=== PATIENT | female | born 1960 | race Caucasian/White ===

== ENCOUNTER 2023-09-06 14:13 | Emergency (ER) | payer MEDICAID, SELFPAY ==
[2023-09-06 14:16] VITALS: BP 151/129; PULSE 85; RESP 16; TEMP 35.9; O2SAT 96; BMI 29.4
--- NOTE | 2023-09-06 14:29 | EDS_ITS ---
HPI HPI - Psych History of Present Illness Chief Complaint: Mental Health Detail of Chief Complaint: Depressed due to recent loss of her 2 months ago. Informant: patient Onset/Context/Timing Onset: Month(s) Context: Gradual Onset Conflict: Family (Loss of her 2 months ago.) Timing: Continuous Current Severity: Moderate Maximum Severity: Moderate Associated Symptoms Associated Symptoms - Psych: Positive for Depressed and Change in Eating Narrative Narrative: 63-year-old female history diabetes. has 22 months ago they been 29 years she went willingly admits she is depressed from that. Also her dog's illness made to put her dog down in the next several days. She was previously living in the [facility]. Is recently been hospitalized both at [facility] and a mental health facility 5 over the last 10 weeks. States that she has not made a suicide attempt except for 9 days she did not eat but is now eating again. Denies any prior psychiatric illness before the loss of her . She states she has had some falls recently and injured her left shoulder and left foot she has had prior left foot surgery. Prior similar symptoms: Yes Recent Illness/Hospitalization: Yes PFSH PFSH Medical History Anxiety Depression Dyslipidemia HTN (hypertension) Diabetes Allergy/AdvReac Type Severity Reaction Status Date / Time Penicillins Allergy Severe Anaphylaxis Verified 09/06/23 14:37 bee venom protein (honey Allergy Anaphylaxis Verified 09/06/23 14:37 bee) (bees) Social History Smoking Status: Current every day smoker tobacco type: cigarettes ROS ROS ED ROS Narrative Denies recent illness. Mild nausea. Review of Systems ROS Unobtainable: Denies due to encephalopathy Constitutional Constitutional ED: Denies chills or fever(s) Eyes Eyes: Denies blurry vision ENT ENT ED: Denies ear pain Cardiovascular Cardiovascular: Denies chest pain Respiratory/Chest Respiratory/Chest: Denies cough Gastrointestinal Gastrointestinal: Reports nausea; Denies abdominal pain, constipation, diarrhea, melena or vomiting Genitourinary Genitourinary ED: Denies dysuria or hematuria Musculoskeletal Musculoskeletal: Denies arthralgias or back pain Integumentary Denies abscess Neurologic Neurologic: Denies headache(s) Psychiatric Psychiatric: Reports depression and suicidal ideation; Denies anxiety Endocrine Endocrinology: Denies polydipsia, polyphagia or polyuria Hematologic/Lymphatic Hematologic/Lymphatic: Denies easy bleeding, easy bruising or lymphadenopathy Allergic/Immunologic Allergic/Immunologic ED: Denies mouth swelling, tongue swelling or urticaria EXAM Physical Exam Narrative Exam Narrative: Well-appearing 63-year-old female. Vital signs are stable afebrile. Initial blood pressure is elevated to be rechecked. H EENT exam tearful but otherwise no signs of trauma. Pupils round reactive light. Mytrex membranes. Neck nontender. Lungs clear to auscultation bilaterally. Heart regular rhythm rate about 80 no murmur. Chest wall and ribs nontender. Abdomen soft nontender. Moving all 4 extremities. Mild tenderness left shoulder no gross deformity. Normal range of motion. Left distal humerus, elbow, forearm wrist and hand nontender. Neurovascular intact. Right upper extremity unremarkable. Right lower extremity unremarkable. Left foot mild tenderness minimal swelling. Neurovascular intact. Left hip, knee and ankle are nontender. Neurologically she is awake alert no focal motor deficits. Emotionally she is tearful and upset but answering questions and following commands. Const Vital Signs: 09/06/23 14:16 Temperature 96.7 F L Temperature Source Temporal Pulse Rate 85 Respiratory Rate 16 Blood Pressure 151/129 H Blood Pressure Mean 136 Pulse Ox 96 Positive well nourished and well developed; Negative for cachectic, contractures or unkempt General Appearance ED: well developed and NAD; Negative for unkempt, cachectic, contractures or pallor Nutritional Appearance: Negative for cachectic HEENT Reports moist mucous membranes normocephalic and atraumatic; Negative for trauma or tenderness Eyes PERRL and EOMs intact bilaterally General Eye ED: Negative for pale conjunctiva or scleral icterus Neck no lymphadenopathy, supple and no JVD General: Negative for tenderness Resp normal respiratory effort and clear to auscultation bilaterally Effort and Inspection: Negative for retractions Auscultation: Negative for rales, rhonchi, wheezes or diminished lung sounds Cardio S1 normal heart sound, S2 normal heart sound and no murmurs Palpation: Negative for other Rate: regular rate Rhythm: regular rhythm GI non-tender, non-distended and no masses Inspection: Negative for abdominal distention Auscultation: normoactive bowel sounds Palpation: soft; Negative for tender, guarding or mass Back/Spine no CVA tenderness General Back: Negative for CVA tenderness Cervical Spine: Negative for cervical spine tenderness Thoracic Spine / Upper Back: Negative for thoracic spinal tenderness Lumbar Spine / Lower Back: Negative for lumbar spinal tenderness Coccyx: Negative for other Extremity normal to inspection General Extremety ED: Negative for edema or tenderness General Extremity: Negative for edema Neuro oriented x3 and CN's II-XII intact bilaterally Sensorium / Orientation: alert, oriented to person, oriented to place and oriented to time; Negative for orientation impaired, confused, lethargic or stuporous Motor Exam: strength 5/5 throughout Psych mental status grossly normal, thought process normal, cooperative, speech normal, activity/motor behavior normal and denies hallucinations; Negative for affect normal or denies suicidal ideation Appearance: grossly normal, appropriate and well kempt; Negative for unkempt, disheveled or intubated Attitude: calm, engaged, No paranoid, No withdrawn, No bizarre, No uncooperative, No evasive, No guarded, No belligerent, No agitated, No aggressive and hostile Activity / Motor Behavior: appropriate eye contact Speech: normal speech Mood & Affect: depressed, sad and tearful Thought Process: normal thought process Thought Content: normal thought content Attention / Concentration: attention grossly intact Memory / Cognition: memory grossly intact Insight: insight good Judgement: judgement good Skin General Skin Exam: Negative for jaundice or pallor Lesions: no lesions Rashes: no rashes Trauma: Negative for abrasion or laceration Wounds: Negative for amputation MDM MDM MDM Narrative Medical decision making narrative: 63-year-old female 2 months ago lost her . She has been in and out of hospital mental health institutions for about 5 weeks. Currently staying with a friend locally. Has had some falls recently complaining of left shoulder and foot pain which will be x-rayed. She will go through an ED mental health evaluation with screening labs and crisis evaluation. She is obviously depressed and may or may not be suicidal. Repeat exam patient is doing well at 3:50 PM. Resting comfortably. Crisis evaluated patient I spoke with the person around 5:30 PM. They do not feel comfortable sending the patient home. She did admit to them that she has had other significant psychiatric issues in the past and possibly prior suicide attempts. They are working on a transfer to a psychiatric facility. Patient is comfortable with the plan. History & Record Review Discussion w/independent historian: Patient Additional record(s) reviewed:: No prior records Lab Data Attestation: I reviewed the patient's lab results. Lab results narrative: CBC normal. White count of 7. H&H 13 and 41. Platelets 293. Electrolytes unremarkable gap 8. BUN and creatinine 25 and 0.6. Glucose 141. Alcohol level less than 3. Urine tox screen positive for ecstasy and cannabis. Labs: Laboratory Results - last 24 hr 09/06/23 09/06/23 14:49 16:05 WBC 7.9 RBC 4.56 Hgb 13.7 Hct 41.7 MCV 91.4 MCH 30.0 MCHC 32.9 RDW Std Deviation 53.1 H RDW Coeff of Ifeoma 15.8 H Plt Count 293 MPV 8.1 Immature Gran % (Auto) 0.400 Neut % (Auto) 77.6 H Lymph % (Auto) 13.2 L Harper % (Auto) 6.3 Eos % (Auto) 2.0 Baso % (Auto) 0.5 Absolute Neuts (auto) 6.1 Absolute Lymphs (auto) 1.04 Nucleated RBC % 0 Sodium 139 Potassium 3.8 Chloride 110 H Carbon Dioxide 21.0 Anion Gap 8 BUN 25 H Creatinine 0.67 Estim Creat Clear Calc 89.93 Est GFR (MDRD) Af Amer 114 Est GFR (MDRD) Non-Af 94 BUN/Creatinine Ratio 37.3 H Glucose 141 H Calcium 9.3 Urine Opiates Screen NEGATIVE Urine Methadone Screen NEGATIVE Ur Barbiturates Screen NEGATIVE Ur Phencyclidine Scrn NEGATIVE Ur Amphetamines Screen NEGATIVE MDMA (Ecstasy) Screen POSITIVE H U Benzodiazepines Scrn NEGATIVE Urine Cocaine Screen NEGATIVE U Cannabinoids Screen POSITIVE H Ur Drug Screen Comment Ethyl Alcohol < 3.0 Radiography Diagnostic Testing: Clinical Impression(s) from Imaging Studies Foot X-Ray 09/06/23 14:55 IMPRESSION: There are no acute findings of the foot. Electronically Signed: Basilio Fallon MD at 15:24 EDT , Shoulder X-Ray 09/06/23 14:55 IMPRESSION: There are no acute findings of the shoulder. Electronically Signed: Basilio Fallon MD at 15:33 EDT , Left foot x-ray, 3 views, interpreted by myself and the radiologist shows no acute abnormality. No fracture or dislocation. Osteopenia and chronic arthritic changes. Left shoulder x-ray interpreted by myself and radiologist 2 views shows no acute fracture. No dislocation. Chronic changes. Discharge Plan Triage Chief Complaint: Mental Health Other Complaint: Lower Extremity Injury ED Provider: Cristo Gonzalez Dx/Rx/DC Orders Clinical Impression: Fall, Contusion of left shoulder, Sprain of foot, left, Depression, History of diabetes mellitus, Suicidal thoughts Primary Care Provider: Care Physician,No Primary Referrals: Care Physician,No Primary [Primary Care Provider] - Print Language: Austrian
--- NOTE | 2023-09-06 14:31 | ED.RN ---
Per Dr Gonzalez no sitter needed.
--- NOTE | 2023-09-06 14:38 | ED.RN ---
PER , PT DOES NOT NEED A SITTER.
--- NOTE | 2023-09-06 14:55 | RAD_ITS ---
STUDY: XR Foot Min 3 Views CLINICAL: Female, 63 years old. fall TECHNIQUE: XR Foot Min 3 ViewsLEFT COMPARISON: None. FINDINGS: There is demineralization of the rear and midfoot bones. There is an enthesophyte involving the posterior superior calcaneus at the site of insertion of the Achilles tendon. Normal visualized subtalar, talonavicular, calcaneocuboid, tarsal and tarsometatarsal articulations. Plantar calcaneal anchor noted. There is demineralization of the metatarsi. There is degenerative arthrosis of the metatarsophalangeal joint of the hallux . Normal tibial and fibular sesamoid bones. Normal interphalangeal joint of the great toe. Normal phalanges of the great toe. Normal second through fifth metatarsophalangeal joints. Normal interphalangeal joints and phalanges of the lesser toes. The soft tissue structures are unremarkable. RAD/Foot min 3 Views IMPRESSION: There are no acute findings of the foot. Electronically Signed: Basilio Fallon MD at 15:24 EDT Reading Location ID and State: [facility] / [place] , Service support ,
--- NOTE | 2023-09-06 14:55 | RAD_ITS ---
STUDY: XR Shoulder Min 2 Views REASON FOR EXAM: Female, 63 years old. fall TECHNIQUE: XR Shoulder Min 2 Views LEFT COMPARISON: None. FINDINGS: There is severe degenerative arthrosis of the glenohumeral articulation. There is degenerative arthrosis of the acromioclavicular joint without inferior osseous spur formation. Normal acromion. Normal humeral head and visualized proximal humerus. The soft tissue structures are unremarkable. Normal visualized pulmonary apex. RAD/Shoulder min 2 Views IMPRESSION: There are no acute findings of the shoulder. Electronically Signed: Basilio Fallon MD at 15:33 EDT ,
[2023-09-06] MEDS: oxyCODONE 5 MG Tablet PO ×2 (14:56→20:06)
[2023-09-06 14:59] LABS: Absolute Lymphocyte Count 1.04 X10^3/uL (0.83-4.51); Absolute Neutrophil Count 6.1 X10^3/uL (2.0-7.7); Basophil# 0.04 X10^3/uL; Basophil% 0.5 % (0-1); Eosinophil# 0.16 X10^3/uL; Hematocrit 41.7 % (37-47); Hemoglobin 13.7 g/dL (12.0-15.0); Lymphocyte # 1.04 X10^3/ul (0.83-4.51); Lymphocyte % 13.2 % (19-41); Mean Corp Hgb Conc 32.9 g/dL (32-36); Mean Corpuscular Volume 91.4 fL (81-99); Mean Platelet Vol. 8.1 fl (6.2-12.0); Monocyte% 6.3 % (0-10); NRBC Flagged by Analyzer 0 % (0-5); Neutrophil # 6.12 X10^3/uL (2.7-7.7); Neutrophil % 77.6 % (47-70); Platelet Count 293 K/mm3 (150-450); RBC Distribution Width CV 15.8 % (11.6-14.6); RBC Distribution Width SD 53.1 fl (35.1-43.9); Red Blood Count 4.56 M/mm3 (4.2-5.4); White Blood Count 7.9 K/mm3 (4.4-11.0)
[2023-09-06 15:14] LABS: Anion Gap 8 (5-15); BUN 25 mg/dL (7-18); BUN/Creat Ratio 37.3 RATIO (10-20); Calcium,Total 9.3 mg/dL (8.5-10.1); Chloride 110 mmol/L (98-107); Creatinine, Serum 0.67 mg/dL (0.55-1.02); EST Glomerular Filtration Rate 94 mL/min (>60); Est Glom Filt Rate - Afr Amer 114 mL/min (>60); Estimated Creatinine Clearance 89.93 ml/min; Glucose 141 mg/dL (74-106); Potassium 3.8 mmol/L (3.5-5.1); Sodium Level 139 mmol/L (136-145)
[2023-09-06 15:47] LABS: Alcohol, Blood (Medical)-Serum < 3.0 mg/dL
[2023-09-06 16:36] LABS: Amphetamine Urine VISTA NEGATIVE (<1000 ng/mL); Barbiturate Urine VISTA NEGATIVE (< 200 ng/mL); Benzodiazepine Urine VISTA NEGATIVE (< 200 ng/mL); Cocaine Urine VISTA NEGATIVE (< 300 ng/mL); Ecstacy Urine VISTA POSITIVE (< 500 ng/mL); Methadone Urine VISTA NEGATIVE (< 300 ng/mL); PCP Urine VISTA NEGATIVE (< 25 ng/mL); THC Urine VISTA POSITIVE (< 50 ng/mL); Vista UDS pH Range 6
[2023-09-06 19:23] VITALS: RESP 16
[2023-09-06 23:00] VITALS: BP 117/58; PULSE 76; RESP 16; TEMP 36.3; O2SAT 94
--- NOTE | 2023-09-06 23:53 | NURSING ---
ACCEPTED TO [facility] BY DR. ROGEL. GOING TO THE [facility] [phone] REPORT
[2023-09-07] MEDS: Ibuprofen 600 MG Tablet PO (02:04)
[2023-09-07 03:00] VITALS: BP 143/64; PULSE 73; RESP 18; O2SAT 98
[2023-09-07 07:00] VITALS: BP 148/84; PULSE 78; RESP 16; TEMP 36.3; O2SAT 95
[2023-09-07 07:27] VITALS: BP 148/84; PULSE 78; RESP 16; TEMP 36.3; O2SAT 95
[2023-09-07] MEDS: Ondansetron ODT 4 MG Tablet 8 MG PO (07:32)
--- NOTE | 2023-09-07 07:35 | ED.RN ---
julio rn attempted to call report 2 times, this nurse attempted to call report x2 with no answers
== END 2023-09-07 07:36 ==
PROVIDERS: Emergency Provider Emergency Medicine; Visit Provider Emergency Medicine
DX: S40.012A Contusion of left shoulder, initial encounter (principal); E11.9 Type 2 diabetes mellitus without complications; S93.602A Unspecified sprain of left foot, initial encounter; F17.210 Nicotine dependence, cigarettes, uncomplicated; F32.A Depression, unspecified; Z63.4 Disappearance and death of family member; W19.XXXA Unspecified fall, initial encounter
CPT/HCPCS: 73030; 73630; 80048; 80307; 80320; 85025; 99285; G0480

== ENCOUNTER 2023-09-14 15:07 | Emergency (ER) | payer MEDICAID, SELFPAY ==
[2023-09-14 15:08] VITALS: BP 144/77; PULSE 75; RESP 14; TEMP 35.7; O2SAT 97
[2023-09-14 15:12] VITALS: BMI 29.5
--- NOTE | 2023-09-14 16:35 | EDS_ITS ---
HPI History of Present Illness Chief Complaint: Confusion Detail of Chief Complaint: Persistent left shoulder, low back and left foot pain. Onset/Context/Timing Onset: Weeks Context: - (Patient vague and unable to determine if abrupt or gradual) Timing: Continuous and Waxes and wanes Quality: Pain Location: Left shoulder, low back and left leg. Current Severity: Mild Maximum Severity: Moderate Worsened by: Movement Relieved by: Nothing Associated Symptoms Associated Symptoms: Denies paresthesia or anesthesia. Denies fall since visit on September 05 Narrative Narrative: Patient is a 63-year-old woman. She was seen on the . She had imaging of her left shoulder left foot which were interpreted by radiologist and ER physician as negative for any acute pathology. She did not have images of her low back. She denies bowel or bladder dysfunction. She denies saddle paresthesia or anesthesia. She denies radicular pain. She denies dragging her left or right foot. She denies fever, chills night sweats. She denies any recent surgical or dental procedures. She denies headache. She denies visual, ocular auditory symptoms. Denies trouble speech or swallowing. Denies neck pain or neck stiffness. She denies cardiac respiratory symptoms. She denies urologic symptoms. Patient admits she is depressed. Patient has thoughts of harming herself. Patient states she is not doing well at home. She is not eating. She is not sleeping well. Prior similar symptoms: Yes Recent Illness/Hospitalization: Yes [facility] Medical History Anxiety Depression Dyslipidemia HTN (hypertension) Diabetes Allergy/AdvReac Type Severity Reaction Status Date / Time Penicillins Allergy Severe Anaphylaxis Verified 09/14/23 15:08 bee venom protein (honey Allergy Anaphylaxis Verified 09/14/23 15:08 bee) (bees) Social History (Updated 09/14/23 @ 16:[address] Mason Sung MD) household members: none Smoking Status: Current every day smoker tobacco type: cigarettes ROS ROS ED Constitutional Constitutional ED: Denies chills, fever(s), subjective, sweats or weight loss Eyes Eyes: Denies blurry vision, change in vision or diplopia ENT ENT ED: Denies ear pain, rhinorrhea or sore throat Cardiovascular Cardiovascular: Denies chest pain, orthopnea, palpitations or paroxysmal nocturnal dyspnea Respiratory/Chest Respiratory/Chest: Denies cough, dyspnea, dyspnea on exertion, orthopnea or paroxysmal nocturnal dyspnea Gastrointestinal Gastrointestinal: Denies abdominal pain, diarrhea, nausea or vomiting Genitourinary Genitourinary ED: Denies dysuria, hematuria or urinary frequency Musculoskeletal Musculoskeletal: Reports back pain and other Details: Left shoulder pain and left leg pain ; Denies arthralgias, myalgias or neck pain Integumentary Denies abscess or Abrasions Neurologic Neurologic: Denies headache(s), paresthesias or weakness Psychiatric Psychiatric: Reports depression, suicidal ideation, suicidal thoughts and other Details: approximately 3 months ago. She lives alone now. ; Denies anxiety Hematologic/Lymphatic Hematologic/Lymphatic: Reports systems reviewed and no addt'l complaints, except as documented EXAM Physical Exam Const Vital Signs: 09/14/23 15:08 09/14/23 17:08 09/14/23 17:44 Temperature 96.3 F L 97.8 F Temperature Source Temporal Temporal Pulse Rate 75 64 Respiratory Rate 14 18 Blood Pressure 144/77 H 143/78 H Blood Pressure Mean 99 99 Pulse Ox 97 98 99 Oxygen Delivery Method Room Air Room Air Room Air 09/14/23 22:09 09/15/23 07:13 Temperature 97.7 F L Temperature Source Pulse Rate 72 71 Respiratory Rate 18 18 Blood Pressure 146/79 H 136/74 H Blood Pressure Mean 101 94 Pulse Ox 98 98 Oxygen Delivery Method Room Air Positive well nourished, well developed and unkempt General Appearance ED: unkempt, well developed and NAD HEENT Reports moist mucous membranes Psych Appearance: unkempt MDM MDM MDM Narrative Medical decision making narrative: Initially concern for possible compression fracture of lumbar spine. Feel patient has major depression due to 's recent due to pneumonia. She is not doing well at home. She is not eating well or sleeping well. She admits she is depressed. She admits she has thoughts of harming herself. She had similar presentation earlier this month and mental health eval was obtained. They were able to contract for safety at that time. Lab Data Attestation: I reviewed the patient's lab results. Lab results narrative: CBC is unremarkable. Electrolyte panel is unremarkable glucose slightly over 116 with normal CO2 anion gap. Tox is again positive for ecstasy and cannabis. Alcohol was nondetected. Labs: Laboratory Results - last 24 hr 09/14/23 09/14/23 17:15 17:25 WBC 8.8 RBC 4.47 Hgb 13.6 Hct 40.1 MCV 89.7 MCH 30.4 MCHC 33.9 RDW Std Deviation 50.8 H RDW Coeff of Ifeoma 15.4 H Plt Count 285 MPV 8.3 Immature Gran % (Auto) 0.300 Neut % (Auto) 74.6 H Lymph % (Auto) 15.9 L Barbour % (Auto) 6.9 Eos % (Auto) 1.7 Baso % (Auto) 0.6 Absolute Neuts (auto) 6.6 Absolute Lymphs (auto) 1.40 Nucleated RBC % 0 Sodium 138 Potassium 3.6 Chloride 108 H Carbon Dioxide 24.0 Anion Gap 6 BUN 15 Creatinine 0.68 Estim Creat Clear Calc 88.71 Est GFR (MDRD) Af Amer 113 Est GFR (MDRD) Non-Af 93 BUN/Creatinine Ratio 22.2 H Glucose 116 H Calcium 9.2 Urine Opiates Screen NEGATIVE Urine Methadone Screen NEGATIVE Ur Barbiturates Screen NEGATIVE Ur Phencyclidine Scrn NEGATIVE Ur Amphetamines Screen NEGATIVE MDMA (Ecstasy) Screen POSITIVE H U Benzodiazepines Scrn NEGATIVE Urine Cocaine Screen NEGATIVE U Cannabinoids Screen POSITIVE H Ur Drug Screen Comment Ethyl Alcohol < 3.0 Radiography Chest X-Ray - ED: Read by ED Physician (Three-view x-ray of the LS-spine reveals a grade 1 spondylolisthesis of L5-S1. There is minimal degenerative changes noted lumbar region L5. There is no spinal low lysis. There is no lytic or blastic lesions. There is no asymmetry of the joint spaces.) Diagnostic Testing: Clinical Impression(s) from Imaging Studies Lumbar Spine X-Ray 09/14/23 17:09 IMPRESSION: Grade 1 spondylolisthesis L5-S1. Mild scoliosis. Degenerative disc disease L5-S1. 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 She has no family in the area. She told Vi her 2 years ago. She told me and Dr. Gonzalez when she was seen earlier this month that he approximately 2 months ago. Apparently she has a son that lives in [place]. She is uncertain how to get a hold of him. Plan is admission to [facility]. This is her third psychiatric evaluation in the emergency room this past month. Discharge Plan Triage Chief Complaint: Confusion ED Provider: Mason Sung Dx/Rx/DC Orders Clinical Impression: Major depression, Suicidal ideation, Low back pain, Left shoulder pain, Left leg pain, Elevated blood-pressure reading, without diagnosis of hypertension, Cannabis use disorder, Ecstasy abuse Primary Care Provider: Care Physician,No Primary Referrals: Care Physician,No Primary [Primary Care Provider] - Print Language: Indonesian Disposition Disposition: Psychiatric Hospital or Unit Discharge Location: [facility] Discharge Date/Time: 09/15/23 07:00
[2023-09-14 17:08] VITALS: BP 143/78; PULSE 64; RESP 18; TEMP 36.6; O2SAT 98
--- NOTE | 2023-09-14 17:09 | RAD_ITS ---
STUDY: X-RAY - LUMBAR SPINE REASON FOR EXAM: Female, 63 years old. Injury/Pain TECHNIQUE: 3 view(s) of the lumbar spine were obtained. COMPARISON: None FINDINGS: Normal lumbar lordosis. Mild dextroconvex scoliosis. There is a normal alignment of the vertebrae. Normal vertebral bodies and endplates. There is multi-level degenerative disc disease with multi-level disc space narrowing. Grade 1 spondylolisthesis L5-S1. The soft tissue structures are unremarkable. RAD/Lumbar Spine 2 or 3 Views IMPRESSION: Grade 1 spondylolisthesis L5-S1. Mild scoliosis. Degenerative disc disease L5-S1. Electronically Signed: Cl Peña MD at 17:26 EDT ,
[2023-09-14 17:39] LABS: Absolute Neutrophil Count 6.6 X10^3/uL (2.0-7.7); Basophil# 0.05 X10^3/uL; Basophil% 0.6 % (0-1); Eosinophil# 0.15 X10^3/uL; Eosinophils% 1.7 % (0-5); Hematocrit 40.1 % (37-47); Hemoglobin 13.6 g/dL (12.0-15.0); Lymphocyte % 15.9 % (19-41); Mean Corp Hgb Conc 33.9 g/dL (32-36); Mean Corpuscular Hgb 30.4 pg (27.0-32.0); Mean Corpuscular Volume 89.7 fL (81-99); Mean Platelet Vol. 8.3 fl (6.2-12.0); Monocyte# 0.61 X10^3/uL; Monocyte% 6.9 % (0-10); NRBC Flagged by Analyzer 0 % (0-5); Neutrophil # 6.56 X10^3/uL (2.7-7.7); Neutrophil % 74.6 % (47-70); Platelet Count 285 K/mm3 (150-450); RBC Distribution Width CV 15.4 % (11.6-14.6); RBC Distribution Width SD 50.8 fl (35.1-43.9); Red Blood Count 4.47 M/mm3 (4.2-5.4); White Blood Count 8.8 K/mm3 (4.4-11.0)
[2023-09-14 17:44] VITALS: O2SAT 99
[2023-09-14 17:48] LABS: Alcohol, Blood (Medical)-Serum < 3.0 mg/dL
[2023-09-14 17:50] LABS: Anion Gap 6 (5-15); BUN 15 mg/dL (7-18); BUN/Creat Ratio 22.2 RATIO (10-20); Calcium,Total 9.2 mg/dL (8.5-10.1); Chloride 108 mmol/L (98-107); Creatinine, Serum 0.68 mg/dL (0.55-1.02); EST Glomerular Filtration Rate 93 mL/min (>60); Est Glom Filt Rate - Afr Amer 113 mL/min (>60); Estimated Creatinine Clearance 88.71 ml/min; Glucose 116 mg/dL (74-106); Potassium 3.6 mmol/L (3.5-5.1); Sodium Level 138 mmol/L (136-145)
[2023-09-14 18:25] LABS: Amphetamine Urine VISTA NEGATIVE (<1000 ng/mL); Barbiturate Urine VISTA NEGATIVE (< 200 ng/mL); Benzodiazepine Urine VISTA NEGATIVE (< 200 ng/mL); Cocaine Urine VISTA NEGATIVE (< 300 ng/mL); Ecstacy Urine VISTA POSITIVE (< 500 ng/mL); Methadone Urine VISTA NEGATIVE (< 300 ng/mL); PCP Urine VISTA NEGATIVE (< 25 ng/mL); THC Urine VISTA POSITIVE (< 50 ng/mL); Vista UDS pH Range 7
[2023-09-14] MEDS: Acetaminophen 325 MG Tablet 650 MG PO (19:07)
[2023-09-14 22:09] VITALS: BP 146/79; PULSE 72; RESP 18; O2SAT 98
[2023-09-14] MEDS: Ibuprofen 200 MG Tablet 400 MG PO (22:55)
--- NOTE | 2023-09-14 22:58 | EKG12_ITS ---
Test Reason : MHC Blood Pressure : / mmHG Vent. Rate : 072 BPM Atrial Rate : 072 BPM P-R Int : 156 ms QRS Dur : 074 ms QT Int : 416 ms P-R-T Axes : 073 068 108 degrees QTc Int : 455 ms Normal sinus rhythm Nonspecific T wave abnormality Abnormal ECG Confirmed by Lon Roy ([id number]), editor trade journal TIARA READ ([id number]) on 09/16/2023 11:33:27 AM Referred By: Confirmed By:Lon Roy
[2023-09-14] MEDS: traZODone 50 MG Tablet 150 MG PO (23:15)
[2023-09-15 07:13] VITALS: BP 136/74; PULSE 71; RESP 18; TEMP 36.5; O2SAT 98
== END 2023-09-15 07:00 ==
PROVIDERS: Emergency Provider Emergency Medicine; Visit Provider Emergency Medicine
DX: F32.9 Major depressive disorder, single episode, unspecified (principal); F15.10 Other stimulant abuse, uncomplicated; E11.9 Type 2 diabetes mellitus without complications; R45.851 Suicidal ideations; M54.50 Low back pain, unspecified; M79.605 Pain in left leg; R03.0 Elevated blood-pressure reading, without diagnosis of hypertension; F12.90 Cannabis use, unspecified, uncomplicated; F17.210 Nicotine dependence, cigarettes, uncomplicated
CPT/HCPCS: 72100; 80048; 80307; 80320; 85025; 93005; 99284; G0480

== ENCOUNTER 2023-11-26 16:57 | Emergency (ER) | payer MEDICAID, SELFPAY ==
[2023-11-26 16:58] VITALS: BP 167/121; PULSE 81; RESP 16; TEMP 36.9; O2SAT 98; BMI 26.6
--- NOTE | 2023-11-26 17:50 | EKG12_ITS ---
Test Reason : DIZZINESS Blood Pressure : / mmHG Vent. Rate : 081 BPM Atrial Rate : 081 BPM P-R Int : 150 ms QRS Dur : 072 ms QT Int : 392 ms P-R-T Axes : 094 065 073 degrees QTc Int : 455 ms Sinus rhythm with Premature supraventricular complexes Otherwise normal ECG Confirmed by ROHIT EPPERSON, LION ([id number]), food expeditor TIARA READ ([id number]) on 11/30/2023 8:18:31 AM Referred By: Confirmed By:LION BEE MD
[2023-11-26 18:14] LABS: Absolute Neutrophil Count 6.1 X10^3/uL (2.0-7.7); Basophil# 0.05 X10^3/uL; Basophil% 0.6 % (0-1); Eosinophils% 1.2 % (0-5); Hematocrit 46.2 % (37-47); Hemoglobin 15.5 g/dL (12.0-15.0); Lymphocyte % 18.7 % (19-41); Mean Corp Hgb Conc 33.5 g/dL (32-36); Mean Corpuscular Hgb 30.5 pg (27.0-32.0); Mean Corpuscular Volume 90.9 fL (81-99); Mean Platelet Vol. 8.5 fl (6.2-12.0); Monocyte# 0.66 X10^3/uL; Monocyte% 7.7 % (0-10); NRBC Flagged by Analyzer 0 % (0-5); Neutrophil # 6.11 X10^3/uL (2.7-7.7); Neutrophil % 71.4 % (47-70); Platelet Count 243 K/mm3 (150-450); RBC Distribution Width CV 13.9 % (11.6-14.6); RBC Distribution Width SD 46.6 fl (35.1-43.9); Red Blood Count 5.08 M/mm3 (4.2-5.4); White Blood Count 8.6 K/mm3 (4.4-11.0)
--- NOTE | 2023-11-26 18:22 | CT_ITS ---
STUDY: CT BRAIN WITHOUT CONTRAST REASON FOR EXAM: Female, 63 years old. head trauma RADIATION DOSAGE (If Supplied By Facility): CTDIvol = ( 44.99 ) mGy, DLP = ( 849.54 ) mGycm TECHNIQUE: Transaxial CT imaging of the brain was performed without administration of intravenous contrast material. Individualized dose optimization techniques were used for this CT. COMPARISON: No relevant priors. FINDINGS: Normal soft tissue structures. Normal calvarium. Normal size ventricles and extra-axial spaces for the patient''s age. Minor periventricular white matter changes.. Probable old lacunar infarct in the right basal ganglia versus prominent perivascular space.. Small hypoattenuated density within the left thalamus of uncertain etiology Normal brainstem. Normal cerebellum. There is no intracranial hemorrhage. There are no findings of an acute ischemic infarction. Mild mucosal thickening of right maxillary sinus. Partially opacified right mastoid air cells and mild mucosal thickening of the external auditory canal. CT/Brain/Head without Contrast IMPRESSION: Minor periventricular white matter ischemic changes. Probable old lacunar infarct on the right. Tiny hypoattenuated density in the left thalamus of uncertain significance. No evidence for acute bleed MRI would be useful to exclude possibility of evolving infarct if clinically warranted Incidental finding of right otitis externa and mastoiditis likely chronic Electronically Signed: Ketan Smith MD at 19:21 EDT ,
--- NOTE | 2023-11-26 18:23 | EX.ED.DYSGE1 ---
HPI History of Present Illness Chief Complaint: Dizziness Informant: patient Narrative Narrative: Patient is a 63-year-old female with history of anxiety, depression, chronic pain, diabetes mellitus presenting via EMS for dizziness, social issues and chronic pain. Patient states for the past few weeks she has had increased dizziness. She states that yesterday she fell and hit her head. She states she gets dizzy when she stands up. She denies any associate loss of conscious or lacerations. She did land on her left shoulder and is having increased pain of her left shoulder. She also notes that she has pins and screws in her left heel and has been having worsening pain there. She states her surgery was years ago at [facility], [place]. She now is having pain in her right foot because she is putting more weight on her right foot. She states she is chronic back pain that is worse with her falling. She states she previously was on gabapentin 600 mg and Percocet [address] Skinner in [place]. She states that she has been homeless for the past 6 months but is planning on getting an apartment with a care home this coming weekend. She notes that the person she is currently staying with recently still $900 from her and she just wants to . She states that she has a small dog ever since her and that is all she has to live for. Patient told EMS that she has been out of her insulin for a week as well. Patient denies any chest pain or difficulty breathing. Denies any swelling of her legs. Does have a rash on her lower extremities is very itchy and is requesting something for the itching. [facility] Medical History Anxiety Depression Dyslipidemia HTN (hypertension) Diabetes Allergy/AdvReac Type Severity Reaction Status Date / Time Penicillins Allergy Severe Anaphylaxis Verified 09/14/23 15:08 bee venom protein (honey Allergy Anaphylaxis Verified 09/14/23 15:08 bee) (bees) Social History household members: none Smoking Status: Current every day smoker tobacco type: cigarettes ROS ROS ED Constitutional Constitutional ED: Denies chills or fever(s) Eyes Eyes: Denies change in vision Cardiovascular Cardiovascular: Denies chest pain Respiratory/Chest Respiratory/Chest: Denies cough Gastrointestinal Gastrointestinal: Denies nausea or vomiting Musculoskeletal Musculoskeletal: Reports arthralgias, back pain and myalgias Integumentary Reports rash Neurologic Neurologic: Reports headache(s); Denies paresthesias or weakness Psychiatric Psychiatric: Reports anxiety and suicidal ideation Hematologic/Lymphatic Hematologic/Lymphatic: Denies easy bleeding or easy bruising EXAM Physical Exam Const Vital Signs: 11/26/23 16:58 11/26/23 20:00 Temperature 98.4 F Temperature Source Oral Pulse Rate 81 Pulse Rate [Lying] 71 Pulse Rate [Sitting (for 1 minute prior to obtaining)] 77 Pulse Rate [Standing (for 1 minute prior to obtaining)] 82 Respiratory Rate 16 Blood Pressure 167/121 H Blood Pressure [Lying] 151/69 H Blood Pressure [Sitting (for 1 minute prior to obtaining)] 154/74 H Blood Pressure [Standing (for 1 minute prior to obtaining)] 148/72 H Blood Pressure Mean 136 Blood Pressure Mean [Lying] 96 Blood Pressure Mean [Sitting (for 1 minute prior to obtaining)] 100 Blood Pressure Mean [Standing (for 1 minute prior to obtaining)] 97 Pulse Ox 98 Oxygen Delivery Method Room Air Positive well nourished and well developed General Appearance ED: well developed and NAD HEENT Reports moist mucous membranes HEENT Narrative: Cerumen impaction in the right ear. Negative for trauma Eyes PERRL and EOMs intact bilaterally Neck supple General: Negative for tenderness Chest Wall inspection of chest normal and palpation of chest normal Resp normal respiratory effort and clear to auscultation bilaterally Cardio regular rate and regular rhythm GI normal to inspection, nondistended, normoactive bowel sounds and non-tender Extremity normal to inspection Extremity Narrative: Mild diffuse tenderness of the left shoulder and left heel. No obvious deformity. No short arc range of motion pain of the shoulder. General Extremety ED: Negative for edema General Extremity: Negative for edema Neuro oriented x3 Sensorium / Orientation: alert Motor Exam: Negative for general weakness Psych Psych Narrative: Rapid speech, does not appear internally stimulated. Intermittently reports depression and thoughts of self harm as well as hopelessness but then also reports looking towards the future and getting new housing. Talks about caring for her dog. Mood & Affect: anxious Skin no wounds Skin Narrative: Scattered erythematous raised lesions in a more linear distribution on the extremities consistent with insect bites MDM MDM MDM Narrative Medical decision making narrative: Patient is evaluated for multiple complaints including dizziness, head injury, falls and pain all over. She also is reporting worsening depression, thoughts of self-harm and medication noncompliance. Differential diagnosis includes was not limited to arrhythmia, infection, encephalopathy, malingering, somatic disorder, chronic pain, shoulder dislocation, shoulder contusion, bug bites, AGUILAR, hyperglycemia, electrolyte abnormalities, intracranial hemorrhage. Patient does have multiple comorbidities and we will obtain workup including EKG, CT of the brain and lab work. Patient's vital signs are significant only for mild hypertension. She is orthostatic negative in the emergency room. She is given initially Tylenol and then hydroxyzine for her itching. She is requesting further pain medication patient is given Toradol. Her lab work is largely normal. She has a mild elevation of her hemoglobin 15.5 but her white blood cell count is normal. Her CMP is also largely normal specifically with normal kidney function and normal liver enzymes. Urinalysis is consistent with infection as it has 10-25 white blood cells and 1+ bacteria. Will place for culture and start on Bactrim. Urine drug is positive for benzodiazepines and cannabis. CT of the brain shows chronic changes and a tiny hypoattenuated density of the left thalamus of uncertain significance. Patient does not have symptoms consistent with acute stroke. On repeat exam she does not have any focal logic deficits, has no drift of the extremities, has normal range of motion of the eyes and normal [id number]. She is not having truncal ataxia. I do not think this is clinically relevant. In addition the radiologist commented on chronic otitis externa and mastoiditis of the right ear. Clinically she does not have mastoiditis. She does have a large cerumen impaction which could be causing some of her dizziness and this is irrigated by nursing. Patient is evaluated by the counseling center. They will try to find her placement to given that she is reporting suicidal ideations with a plan. Patient did not tell me a plan. In addition patient is high risk as she does not have anyone to help with her care and help with her access to medications. Patient signed out to oncoming physician pending final placement/disposition. Patient is medically cleared. Lab Data Attestation: I reviewed the patient's lab results. Labs: Laboratory Results - last 24 hr 11/26/23 11/26/23 11/26/23 18:10 19:15 19:19 WBC 8.6 RBC 5.08 Hgb 15.5 H Hct 46.2 MCV 90.9 MCH 30.5 MCHC 33.5 RDW Std Deviation 46.6 H RDW Coeff of Ifeoma 13.9 Plt Count 243 MPV 8.5 Immature Gran % (Auto) 0.400 Neut % (Auto) 71.4 H Lymph % (Auto) 18.7 L [place] % (Auto) 7.7 Eos % (Auto) 1.2 Baso % (Auto) 0.6 Absolute Neuts (auto) 6.1 Absolute Lymphs (auto) 1.60 Nucleated RBC % 0 Sodium 138 Potassium 3.6 Chloride 107 Carbon Dioxide 24.0 Anion Gap 7 BUN 14 Creatinine 0.89 Estim Creat Clear Calc 64.58 Est GFR (MDRD) Af Amer 82 Est GFR (MDRD) Non-Af 68 BUN/Creatinine Ratio 15.7 Glucose 121 H Calcium 9.9 Magnesium 1.7 Total Bilirubin 0.30 AST 9 L ALT 15 Alkaline Phosphatase 105 Total Creatine Kinase 73 Troponin I High Sens 15 Total Protein 7.8 Albumin 3.3 Globulin 4.5 H Albumin/Globulin Ratio 0.7 L Urine Color Yellow Urine Clarity Sl. Cloudy Urine pH 6.0 Ur Specific [place] 1.020 Urine Protein 30 H Urine Glucose (UA) Normal Urine Ketones 5 H Urine Occult Blood Negative Urine Nitrite Negative Urine Bilirubin 1 H Urine Urobilinogen 1 H Ur Leukocyte Esterase 500 H Urine RBC 0-5 SEEN Urine WBC 10-25 SEEN Ur Squamous Epith Cells 5-10 SEEN Urine Bacteria 1+ Urine Mucus 0 SEEN Urine Opiates Screen NEGATIVE Urine Methadone Screen NEGATIVE Ur Barbiturates Screen NEGATIVE Ur Phencyclidine Scrn NEGATIVE Ur Amphetamines Screen NEGATIVE MDMA (Ecstasy) Screen NEGATIVE U Benzodiazepines Scrn POSITIVE H Urine Cocaine Screen NEGATIVE U Cannabinoids Screen POSITIVE H Ur Drug Screen Comment Ethyl Alcohol 4.0 Radiography Chest X-Ray - ED: 1 View, Read by ED Physician, Read by Radiologist and No Acute Disease Diagnostic Testing: Clinical Impression(s) from Imaging Studies Brain CT 11/26/23 18:22 IMPRESSION: Minor periventricular white matter ischemic changes. Probable old lacunar infarct on the right. Tiny hypoattenuated density in the left thalamus of uncertain significance. No evidence for acute bleed MRI would be useful to exclude possibility of evolving infarct if clinically warranted Incidental finding of right otitis externa and mastoiditis likely chronic Electronically Signed: Ketan Smith MD at 19:21 EDT , Chest X-Ray 11/26/23 18:55 IMPRESSION: No acute cardiopulmonary pathology Electronically Signed: Ketan Smith MD at 19:26 EDT , Shoulder X-Ray 11/26/23 18:55 IMPRESSION: Degenerative changes. 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
[2023-11-26] MEDS: Acetaminophen 325 MG Tablet 650 MG PO (18:36)
[2023-11-26] MEDS: hydrOXYzine PAM 25 MG Capsule 50 MG PO (18:36)
[2023-11-26 18:38] LABS: ALB/GLOB Ratio 0.7 RATIO (0.9-2.4); AST(SGOT) 9 U/L (15-37); Alanine Aminotransfer ALT/SGPT 15 U/L (13-56); Albumin, Serum 3.3 g/dL (3.2-5.0); Alkaline Phosphatase 105 U/L (45-117); Anion Gap 7 (5-15); BUN 14 mg/dL (7-18); BUN/Creat Ratio 15.7 RATIO (10-20); CPK Total, Creatine Kinase 73 U/L (26-192); Calcium,Total 9.9 mg/dL (8.5-10.1); Chloride 107 mmol/L (98-107); Creatinine, Serum 0.89 mg/dL (0.55-1.02); EST Glomerular Filtration Rate 68 mL/min (>60); Est Glom Filt Rate - Afr Amer 82 mL/min (>60); Estimated Creatinine Clearance 64.58 ml/min; Globulin 4.5 g/dL (2.2-4.2); Glucose 121 mg/dL (74-106); Magnesium 1.7 mg/dL (1.6-2.6); Potassium 3.6 mmol/L (3.5-5.1); Protein, Total 7.8 g/dL (6.4-8.2); Sodium Level 138 mmol/L (136-145); Troponin-I HS 15 pg/mL (3.0-54.0)
--- NOTE | 2023-11-26 18:55 | RAD_ITS ---
STUDY: X-RAY CHEST REASON FOR EXAM: Female, 63 years old. lightheaded TECHNIQUE: PA and lateral COMPARISON: None. FINDINGS: The lungs are clear and expanded. There is no demonstrated pleural abnormality. Normal size heart. Normal mediastinum and richy. Normal visualized pulmonary arteries. Normal visualized aortic arch and descending thoracic aorta. Dorsal spine and shoulders demonstrate degenerative change Normal visualized ribs, and clavicles. There is no demonstrated abnormality of the visualized soft tissue structures of the upper abdomen. RAD/Chest PA and Lateral IMPRESSION: No acute cardiopulmonary pathology Electronically Signed: Ketan Smith MD at 19:26 EDT ,
--- NOTE | 2023-11-26 18:55 | RAD_ITS ---
STUDY: X-RAY - LEFT SHOULDER REASON FOR EXAM: Female, 63 years old. pain, injury TECHNIQUE: 4 view(s) of the shoulder. COMPARISON: None. FINDINGS: Narrowed glenohumeral articulation with subchondral cystic changes and prominent spurring of the medial humeral head. Normal acromioclavicular joint. Normal acromion. Normal humeral head and visualized proximal humerus. Mild deformity of the greater tuberosity possibly due to prior dislocation. The soft tissue structures are unremarkable. Normal visualized pulmonary apex. RAD/Shoulder min 2 Views IMPRESSION: Degenerative changes. No acute fracture or dislocation at this time Electronically Signed: Ketan Smith MD at 19:29 EDT ,
[2023-11-26 19:25] LABS: Mucous, Urine 0 SEEN /hpf (<or=2+)
[2023-11-26 19:27] LABS: Color, Urine Yellow (Yellow); Glucose, Dipstick Normal (Normal); Ketone-Dipstick 5 mg/dl (Negative); Leukocyte Esterase-Dipstick 500 /ul (Negative); Nitrite-Dipstick Negative (Negative); Occult Blood-Urine Negative /ul (Negative); Protein-Dipstick 30 mg/dl (Negative); Urine Bilirubin Dipstick 1 mg/dL (Negative); Urine Clarity Sl. Cloudy (Clear); Urine Urobilinogen 1 mg/dl (Normal)
[2023-11-26 19:41] LABS: Bacteria 1+ /hpf (None Seen); Red Blood Cells-Urine 0-5 SEEN /hpf (0-5); Squamous Epithelial Cells - UA 5-10 SEEN /hpf (5-10); White Blood Cells 10-25 SEEN /hpf (0-5)
[2023-11-26 19:43] LABS: Amphetamine Urine VISTA NEGATIVE (<1000 ng/mL); Barbiturate Urine VISTA NEGATIVE (< 200 ng/mL); Benzodiazepine Urine VISTA POSITIVE (< 200 ng/mL); Cocaine Urine VISTA NEGATIVE (< 300 ng/mL); Ecstacy Urine VISTA NEGATIVE (< 500 ng/mL); Methadone Urine VISTA NEGATIVE (< 300 ng/mL); PCP Urine VISTA NEGATIVE (< 25 ng/mL); THC Urine VISTA POSITIVE (< 50 ng/mL); Vista UDS pH Range 5
[2023-11-26 20:00] VITALS: BP 148/72; BP 151/69; BP 154/74; PULSE 71; PULSE 77; PULSE 82
[2023-11-26 22:00] VITALS: BP 148/74; PULSE 72; RESP 18; O2SAT 96
[2023-11-26] MEDS: Ketorolac 15 MG/ML Vial IV (22:06)
[2023-11-26] MEDS: Smz/Tmp Ds Tablet 1 TABLET PO (22:55)
[2023-11-27] MEDS: Gabapentin 300 MG Capsule PO ×2 (00:53→07:27)
[2023-11-27] MEDS: traZODone 50 MG Tablet PO (00:53)
--- NOTE | 2023-11-27 01:13 | ED.RN ---
Pt verbalized to this nurse upon arrival that she was depressed with current life situation. States she is currently homeless, slept in a park last night. also recently. Pt states sometimes she would rather not wake up than be in her current situation. Pt denies having a plan to end life, states she needs to be around to care for her elderly dog and also does not want to leave her son without a mother. Pt does have appt for new low income apartment on Thursday, verbalizes she would be in a better frame of mind if she had housing. After Crisis evaluation, pt was determined to need a sitter. Sitter at bedside immediately after crisis evaluation.
[2023-11-27 03:55] VITALS: BP 165/57; PULSE 46; RESP 16; TEMP 36.6; O2SAT 92
[2023-11-27 06:22] LABS: Bedside Glucose 129 mg/dL (74-106)
[2023-11-27 07:51] LABS: Bedside Glucose 147 mg/dL (74-106)
== END 2023-11-27 07:51 ==
PROVIDERS: Emergency Provider Emergency Medicine; Visit Provider Emergency Medicine
DX: F32.A Depression, unspecified (principal); E11.9 Type 2 diabetes mellitus without complications; Z79.4 Long term (current) use of insulin; R42 Dizziness and giddiness; N39.0 Urinary tract infection, site not specified; E78.5 Hyperlipidemia, unspecified; H61.20 Impacted cerumen, unspecified ear; F17.210 Nicotine dependence, cigarettes, uncomplicated; I10 Essential (primary) hypertension; G89.29 Other chronic pain; Z79.899 Other long term (current) drug therapy
CPT/HCPCS: 70450; 71046; 73030; 80053; 80307; 81001; 82077; 82550; 82962; 83735; 84484; 85025; 87086; 87088; 93005; 96374; 96376; 99285; A4216